=== PATIENT | female | born 1950 | race Hispanic/Latino ===

== ENCOUNTER 2021-06-13 16:38 | Emergency (ER) | payer OTHER ==
--- NOTE | 2021-06-13 16:48 | EDPHYS ---
Physician Documentation [facility] Name: Colette Valerio Age: 70 yrs Sex: Female : 1950 Arrival Date: 06/13/2021 Time: 16:41 Bed Waiting Private MD: ED Physician Jose Early HPI: 06/13 16:50 This 70 yrs old Female presents to ER via Ambulatory with complaints of Insect kb Bite. 16:50 The patient presents with an abscess of the lateral aspect of right calf. Description: kb erythematous, swollen. Onset: The symptoms/episode began/occurred 1 week(s) ago. Possible cause(s): insect sting. Associated signs and symptoms: Pertinent positives: erythema, swelling, Pertinent negatives: discharge, drainage, foreign body sensation, fever, headache, nausea, shortness of breath, vomiting. Modifying factors: the symptoms are alleviated by nothing, the symptoms are aggravated by nothing. Severity of symptoms: At their worst the symptoms were mild, in the emergency department the symptoms are unchanged. The patient has not experienced similar symptoms in the past. The patient has not recently seen a physician. Historical: - Allergies: 16:48 No Known Allergies; vg1 - Home Meds: 16:48 Metformin Oral [Active]; vg1 - PMHx: 16:48 Diabetes mellitus; Hypertensive disorder; vg1 - Immunization history:: Client reports having NOT received the Covid vaccine. - Social history:: Smoking status: Patient denies any tobacco usage or history of. ROS: 16:49 Constitutional: Negative for fever, chills, and weight loss. kb 16:49 Skin: Positive for erythema, swelling, of the lateral aspect of right calf. 16:49 All other systems are negative. Exam: 16:49 Constitutional: This is a well developed, well nourished patient who is awake, alert, kb and in no acute distress. Head/Face: Normocephalic, atraumatic. ENT: Moist Mucous membranes Respiratory: Respirations even and unlabored. No increased work of breathing. Talking in full sentences MS/ Extremity: Pulses equal, no cyanosis. Neurovascular intact. Full, normal range of motion. Neuro: Awake and alert, GCS 15, oriented to person, place, time, and situation. Moves all extremities. Normal gait. 16:49 Skin: insect bite to lateral right calf with surrounding erythema. Vital Signs: 16:47 BP 169 / 91; Pulse 79; Resp 17; Temp 99.3; Pulse Ox 100% ; Weight 127.01 kg; Height 5 vg1 ft. 6 in. (167.64 cm); Pain 0/10; 16:47 Body Mass Index 45.19 (127.01 kg, 167.64 cm) vg1 MDM: 16:48 Patient medically screened. kb 16:49 Data reviewed: vital signs, nurses notes. Data interpreted: Pulse oximetry: on room air kb is 100 %. Interpretation: normal. Counseling: I had a detailed discussion with the patient and/or guardian regarding: the historical points, exam findings, and any diagnostic results supporting the discharge/admit diagnosis, the need for outpatient follow up, a family practitioner, to return to the emergency department if symptoms worsen or persist or if there are any questions or concerns that arise at home. Administered Medications: No medications were administered Disposition Summary: 06/13/21 16:48 Discharge Ordered Location: Home kb Condition: Stable kb Diagnosis - Local infection of the skin and subcutaneous tissue, unspecified kb Followup: kb - With: Emergency Department - When: As needed - Reason: Worsening of condition Followup: kb - With: Private Physician - When: 2 - 3 days - Reason: Recheck today's complaints, Continuance of care, Re-evaluation by your physician Discharge Instructions: - Discharge Summary Sheet kb - Insect Bite, Adult, [id number] kb - Wound Infection, [id number] kb Forms: - Medication Reconciliation Form kb - Thank You Letter kb - Antibiotic Education kb - Prescription Opioid Use kb Prescriptions: - Cephalexin 500 mg Oral Capsule - take 1 capsule by ORAL route every 8 hours for 10 days; 30 capsule; Refills: 0, kb Product Selection Permitted Signatures: Caitlin Valerio, GURPREET-C INSURANCE CLAIMS ASSISTANT-Shelly Taylor, RN RN vg1
--- NOTE | 2021-06-13 16:55 | ER ---
Nurse's Notes [facility] Name: Colette Valerio Age: 70 yrs Sex: Female : 1950 Arrival Date: 06/13/2021 Time: 16:41 Bed Waiting Private MD: Diagnosis: Local infection of the skin and subcutaneous tissue, unspecified Presentation: 06/13 16:47 Chief complaint: Patient states: insect bite x 1 week; unsure of insect but states was vg1 at home when noticed bite. Site appears to be red and states 'its not healing and Im a little concerned bc i have diabetes.' Pt states has been applying Polysporin. Coronavirus screen: Vaccine status: Patient reports being unvaccinated. Client denies travel out of the [place] in the last 14 days. At this time, the client does not indicate any symptoms associated with coronavirus-19. Ebola Screen: Patient negative for fever greater than or equal to 101.5 degrees Fahrenheit, and additional compatible Ebola Virus Disease symptoms. Initial Sepsis Screen: Does the patient meet any 2 criteria? No. Patient's initial sepsis screen is negative. Does the patient have a suspected source of infection? No. Patient's initial sepsis screen is negative. Risk Assessment: Do you want to hurt yourself or someone else? Patient reports no desire to harm self or others. Onset of symptoms was June 06, 2021. 16:47 Method Of Arrival: Ambulatory vg1 16:47 Acuity: TIA 4 vg1 Triage Assessment: 16:48 Bite description: bite sustained to lateral aspect of right calf by unknown insect. vg1 General: Appears in no apparent distress. comfortable, Behavior is calm, cooperative. Pain: Denies pain. Historical: - Allergies: 16:48 No Known Allergies; vg1 - Home Meds: 16:48 Metformin Oral [Active]; vg1 - PMHx: 16:48 Diabetes mellitus; Hypertensive disorder; vg1 - Immunization history:: Client reports having NOT received the Covid vaccine. - Social history:: Smoking status: Patient denies any tobacco usage or history of. Screenin:54 Abuse screen: Denies threats or abuse. Nutritional screening: No deficits noted. vg1 Tuberculosis screening: No symptoms or risk factors identified. Fall Risk None identified. Vital Signs: 16:47 BP 169 / 91; Pulse 79; Resp 17; Temp 99.3; Pulse Ox 100% ; Weight 127.01 kg; Height 5 vg1 ft. 6 in. (167.64 cm); Pain 0/10; 16:47 Body Mass Index 45.19 (127.01 kg, 167.64 cm) vg1 ED Course: 16:41 Patient arrived in ED. ja2 16:47 Caitlin Valerio FNP-C is [facility]. kb 16:47 Jose Early MD is Attending Physician. kb 16:48 Triage completed. vg1 16:48 Arm band placed on. vg1 16:54 Patient has correct armband on for positive identification. vg1 16:54 No provider procedures requiring assistance completed. Patient did not have IV access vg1 during this emergency room visit. Administered Medications: No medications were administered Outcome: 16:48 Discharge ordered by . kb 16:54 Discharged to home ambulatory, with family. vg1 16:54 Condition: good 16:54 Discharge instructions given to patient, Instructed on discharge instructions, follow up and referral plans. medication usage, Demonstrated understanding of instructions, follow-up care, medications, Prescriptions given X 1. 16:55 Patient left the ED. vg1 Signatures: Caitlin Valerio FNP-C FNP-Ckb Garcia, Victoria RN RN vg1 [facility] ja2 Corrections: (The following items were deleted from the chart) 16:50 16:47 Chief complaint: Patient states: insect bite x 1 week; unsure of insect but vg1 states was at home when noticed bite. Site appears to be red. vg1
[2021-06-13 16:59] VITALS: BP 169/91; TEMP 99.3; O2SAT 100
== END 2021-06-13 16:55 | disposition home or self-care (01) ==
LOC: ER 16:38
DX: L08.9 Local infection of the skin and subcutaneous tissue, unspecified (principal); E11.9 Type 2 diabetes mellitus without complications; I10 Essential (primary) hypertension
CPT/HCPCS: 99282